=== PATIENT | female | born 1995 | race Native Hawaiian/Other Pacific Islander ===

== ENCOUNTER 2018-04-24 09:10 | Emergency (ER) | payer OTHER ==
[~2018-04-24] VITALS: Ht 154.9 cm; Wt 63.5 kg
[2018-04-24 09:15] VITALS: BP 131/88; TEMP 98.4
== END 2018-04-24 10:00 | disposition home or self-care (01) ==
LOC: ED 09:10
DX: K02.9 Dental caries, unspecified (principal); R68.84 Jaw pain
CPT/HCPCS: 99281

== ENCOUNTER 2018-06-02 19:49 | Emergency (ER) | payer OTHER ==
[~2018-06-02] VITALS: Ht 154.9 cm; Wt 63.5 kg
== END 2018-06-02 21:07 | disposition home or self-care (01) ==
LOC: ED 19:49
DX: R50.9 Fever, unspecified (principal); R10.9 Unspecified abdominal pain
CPT/HCPCS: 99281